=== PATIENT | male | born 1955 | race Caucasian/White ===

== ENCOUNTER 2024-10-04 09:17 | Emergency (ER) | payer BC, SELFPAY ==
[2024-10-04 09:26] VITALS: BP 144/93
--- NOTE | 2024-10-04 10:47 | ED.GENMED ---
History of Present Illness
General
Chief Complaint: Anal/Rectal Problem
Source: patient
Exam Limitations: none
Time Seen by Provider: 10/04/24 10:25
History of Present Illness
History of Present Illness:
69-year-old male known history of hemorrhoids. However bearing down last night patient developed increased pain foreign body sensation in the rectum. Normally is able to push his hemorrhoids in. Some bleeding. No abdominal pain fever chills or
other complaints
Past History
Past History
ED Past Medical History: Hypercholesterolemia and NIDDM
ED Past Surgical History: Appendectomy, Orthopedic, Tonsilectomy and Other (Deviated septum)
Social History
Tobacco: Non-smoker
Alcohol: None
Phy Exam
Physical Exam
Physical Exam:
GENERAL: Alert and oriented in no apparent distress
CARDIAC: Regular rate and rhythm without any obvious murmurs.
LUNGS: Clear breath sounds,normal
ABDOMEN: Soft, without focal tenderness or distention. Rectal exam with large inflamed swollen external hemorrhoids. Multiple hemorrhoids. No obvious anal tissue however. Small amount of blood. No thrombosed hemorrhoids
NEUROLOGICAL: Alert and oriented , grossly non-focal
SKIN: Warm and dry
PSYCH: Normal and appropriate interaction.
Course
Vital Signs
Initial and Last Documented VS:
Initial Vital Signs
Temp Pulse Resp BP Pulse Ox
97.8 F 91 20 144/93 99
10/04/24 09:26 10/04/24 09:26 10/04/24 09:26 10/04/24 09:26 10/04/24 09:26
Last Documented Vital Signs
Temp Pulse Resp BP Pulse Ox
97.8 F 91 20 144/93 99
10/04/24 09:26 10/04/24 09:26 10/04/24 09:26 10/04/24 09:26 10/04/24 09:26
*Critical Care Note
Total Time (30-74mins, 75-104mins- exclusive of procedures): Not Applicable
Update Note
Update Note:
I was able to carefully push the hemorrhoids back into the anal opening.. Rectal exam unremarkable. Minimal bleeding. Rechecked after lying there and only a very small minor hemorrhoid has protruded from the anal opening. Discussed with
colorectal. Stool softener Anusol HC and follow-up next week.
ED Attending Note
-
Portions of this chart may have been created with voice recognition software.� Occasional wrong word or��sound alike� substitutions may have occurred due to the inherent limitations of voice recognition software.
Discharge Plan
Departure
Patient Disposition: Home (Routine Discharge)
Date of Disposition: 10/04/24
Time of Disposition: 11:19
Patient with high blood pressure during this ER visit?: Yes
Discharge Problem:
Severe external hemorrhoids
Instructions: Hemorrhoids (DC), BLOOD PRESSURE
Prescriptions:
New
hydrocortisone [Anusol-HC] 2.5 % cream with perineal applicator
1 applic TN DAILY Qty: 30 0RF
Referrals:
Ranjan Desai MD [Family Provider] -
Lucas Cha MD [Active] - Follow up in 5-7 days
Activity Restrictions/Additional Instructions:
Use a stool softener like MiraLAX daily
Anusol cream daily
Call the colorectal surgeon for follow-up next week
Return sooner with increased pain bleeding abdominal pain fever or any other concerning symptoms
Interventions
Interventions:
*Risk Screen - Suicide Last Done: 10/04/24 09:26
*General Assessment Last Done: 10/04/24 10:59
*Neglect/Abuse Screening Last Done: 10/04/24 10:59
*ED COVID-19 Vaccine History Last Done: 10/04/24 10:59
ED-Skin Assessment Last Done: 10/04/24 10:59
Discharge Date and Time
Print Language: MICRONESIAN
[2024-10-04 11:33] VITALS: BP 138/87
== END 2024-10-04 11:37 | disposition home or self-care (01) ==
LOC: EMR 09:17
PROVIDERS: EMERGENCY PHYSICIAN Emergency Medicine; FAMILY PHYSICIAN Internal Medicine
DX: K64.4 Residual hemorrhoidal skin tags (principal); E11.9 Type 2 diabetes mellitus without complications; E78.00 Pure hypercholesterolemia, unspecified; Z87.19 Personal history of other diseases of the digestive system; Z90.49 Acquired absence of other specified parts of digestive tract
CPT/HCPCS: 99282